=== PATIENT | male | born 1935 | race Caucasian/White ===

== ENCOUNTER 2017-09-11 11:17 | Inpatient (IN) | payer MEDICARE, OTHER ==
[~2017-09-11] VITALS: Ht 182.9 cm; Wt 88.5 kg
[~2017-09-11 11:17] MED LIST: ALBU90AE IH; ASPI-1169 PO; BENZ-38 PO; CLOP75TA15 PO; COLE625T9 PO; DILT240C88 PO; HYDR-3326 PO; MELO-105 PO; MEMA10TA PO; MIRT7.5T10 PO; PRED10TA PO; PROM6.25 PO
--- NOTE | 2017-09-11 11:17 | NUR ---
APPLIED PRESSURE ON WOUND
--- NOTE | 2017-09-11 11:17 | NUR ---
[id number] FROM [facility] FOR RT EYEBROW LACERATION S/P FALL FROM THE WHEELCHAIR, NO KO
[2017-09-11 11:32] LABS: BASOPHILS % (AUTO) 0.3 % (0.0-2.0); EOSINOPHILS # (AUTO) 0.2 /CMM (0.0-0.7); EOSINOPHILS % (AUTO) 1.5 % (0.0-6.0); HEMATOCRIT 47 % (39-51); HEMOGLOBIN 15.3 g/dL (13.5-17.5); LYMPHOCYTES # (AUTO) 0.7 /CMM (0.8-4.8); LYMPHOCYTES % (AUTO) 5.4 % (20.0-44.0); MEAN CORPUSCULAR HEMOGLOBIN 27 PG (26.0-33.0); MEAN CORPUSCULAR HGB CONC 33 g/dl (31.0-36.0); MEAN CORPUSCULAR VOLUME 81 fL (80-96); MONOCYTES # (AUTO) 0.4 /CMM (0.1-1.30); MONOCYTES % (AUTO) 2.8 % (2.0-12.0); NEUTROPHILS # (AUTO) 11.9 /CMM (1.8-8.9); PLATELET COUNT (AUTO) 270 /CMM (150-450); RDW COEFFICIENT OF VARIATION 13.7 (11.5-15.0); RED BLOOD CELL COUNT(AUTO) 5.72 MIL/uL (4.5-6.0); WHITE BLOOD COUNT (AUTO) 13.2 K/uL (4.3-11.0)
--- NOTE | 2017-09-11 11:36 | NUR ---
CAT SCAN TECHNOLOGIST AT BEDSIDE
[2017-09-11 11:43] LABS: CARBON DIOXIDE 29 mmol/L (21-32); CHLORIDE 110 mmol/L (98-107); CREATININE 1.2 mg/dL (0.6-1.3); GLUCOSE 174 mg/dL (74-106); POTASSIUM 4.3 mmol/L (3.5-5.1); SODIUM SERUM 144 mmol/L (136-145); UREA NITROGEN, BLOOD 32 mg/dL (7-18)
[2017-09-11 11:52] LABS: TROPONIN I < 0.017 ng/mL (0.00-0.056)
--- NOTE | 2017-09-11 11:52 | NUR ---
EKG IN PROGRESS
[2017-09-11 11:53] LABS: INR 1.1 (0.87-1.13); PROTHROMBIN TIME 11.4 SECS (9.5-12.7)
--- NOTE | 2017-09-11 12:23 | NUR ---
DR FISH PAGED [phone]. [facility] WILL COVER ALL CALLS/ADMISSIONS.
[2017-09-11] MEDS ORDERED: IV NS 0.9% 1,000 ML BAG IV ONE (12:30)
--- NOTE | 2017-09-11 12:31 | NUR ---
[facility] PAGED DR ORTEZ PATTERNMAKER GRADER [phone]
[2017-09-11] MEDS ORDERED: SACC250C PO (12:46)
[2017-09-11] MEDS ORDERED: DONE5TAB34 PO (12:46)
[2017-09-11] MEDS ORDERED: FURO20TA4 PO (12:46)
[2017-09-11] MEDS ORDERED: NA P133E RC (12:46)
[2017-09-11] MEDS ORDERED: IPRA3AMP IH (12:46)
[2017-09-11] MEDS ORDERED: MIRT15TA PO (12:46)
[2017-09-11] MEDS ORDERED: DILT180C66 PO (12:46)
[2017-09-11] MEDS ORDERED: GABA100C PO (12:46)
[2017-09-11] MEDS ORDERED: ACET-868 PO (12:46)
[2017-09-11] MEDS ORDERED: MAGN400O6 PO (12:46)
[2017-09-11] MEDS ORDERED: FAMO20TA8 PO (12:46)
[2017-09-11] MEDS ORDERED: DOCU-141 PO (12:46)
[2017-09-11 13:02] LABS: APPEARANCE,URINE Cloudy (CLEAR); BILIRUBIN,URINE Negative (NEGATIVE); BLOOD, URINE Moderate Ery/uL (NEGATIVE); COLOR,URINE Yellow (YELLOW); KETONES,URINE Negative (NEGATIVE); LEUKOCYTE ESTERASE ,URINE Moderate (NEGATIVE); NITRITE, URINE Positive (NEGATIVE); PROTEIN,URINE Trace mg/dl (NEGATIVE); UGLUCOSE Negative (NEGATIVE); UROBILINOGEN,URINE 0.2 EU/dL (0.2)
[2017-09-11] MEDS ORDERED: CEFTRIAXONE 1GM BAG (ER ONLY) 50 ML IV ONE (13:06)
[2017-09-11 13:10] LABS: BACTERIA,URINE Many /HPF (None Seen); SQUAMOUS EPITHELIAL CELL,UR Few /HPF (None Seen); WBC,URINE TOO NUMEROUS TO COUN /HPF (0-3)
--- NOTE | 2017-09-11 13:26 | NUR ---
BED FOR ADMISSION, 328-2, DAIANA TREVINO
[2017-09-11] MEDS ORDERED: MAGNESIUM HYDROXIDE 30 ML UDC PO PRN (13:30)
[2017-09-11] MEDS ORDERED: ONDANSETRON HCL/PF 4 MG/2 ML VIAL IVP PRN (13:30)
[2017-09-11] MEDS ORDERED: HYDROCODONE/APAP 5/325MG 1 EACH TABLET PO PRN (13:30)
[2017-09-11] MEDS ORDERED: ACETAMINOPHEN 325 MG TABLET PO PRN (13:30)
[2017-09-11] MEDS ORDERED: MAG HYDROX/AL HYDROX/SIMETH 30 ML UDC PO PRN (13:30)
[2017-09-11] MEDS ORDERED: Z GUARD REMEDY 2 OZ OINT TP PRN ×2 (13:30→19:30)
[2017-09-11] MEDS ORDERED: CEFTRIAXONE 1GM BAG (ER ONLY) 1 GM/50 ML PIGGYBACK IV ONE (13:30)
[2017-09-11] MEDS ORDERED: ZOLPIDEM TARTRATE 5 MG TABLET PO PRN (13:30)
--- NOTE | 2017-09-11 14:20 | NUR ---
SUPERVISOR SELF SERVICE STOREGOLD LEAF LABORER NOTE PATIENT IS ALERT AND ORIENTED x1-2. NO PAIN AT THIS TIME. NO SOB OR DISTRESS NOTED. CALL LIGHT WITHIN REACH. SAFETY MEASURES IMPLEMENTED. ABLE TO COMMUNICATE NEEDS. IV ON RIGHT AC 18G AND LEFT FOREARM 20 G. HAS MULTIPLE SKIN ISSUES NOTED, RIGHT EYEBROW LACERATION. PATIENT IS FROM [facility], PATIENT WAS SITTING ON WHEELCHAIR WHEN HE FELL FORWARD. NO NEUROLOGICAL DEFICITS NOTED. DAUGHTER AT BEDSIDE. DNR/DNI. POLST IN CHART. AWAITING FOR MD ORDERS. WILL CONTINUE TO MONITOR THROUGHOUT SHIFT
[2017-09-11] MEDS ORDERED: CEFTRIAXONE 1 G in IV D5W 50 ML IV SCH (15:00)
--- NOTE | 2017-09-11 15:22 | NUR ---
ASSISTANT PROFESSOR OF RELIGION NOTE [facility] AND SPOKE WITH DAIANA HURST TO RECEIVE COPY OF POLST FORM. POLST FORM RECEIVED AND PLACED IN CHART
[2017-09-11] MEDS: DILTIAZEM HCL CD 180 MG PO SCH (15:30)
[2017-09-11] MEDS: IV NS 0.9% 1,000 ML IV PRN (15:31)
[2017-09-11] MEDS ORDERED: DILTIAZEM HCL CD 180 MG PO SCH (16:00)
[2017-09-11] MEDS: ASPIRIN 81 MG TAB.CHEW PO SCH (16:46)
[2017-09-11] MEDS: GABAPENTIN 100 MG CAPSULE PO SCH (16:46)
[2017-09-11] MEDS: DONEPEZIL 5 MG TABLET PO SCH (16:46)
[2017-09-11] MEDS: DOCUSATE SODIUM 100 MG CAPSULE PO SCH (16:46)
--- NOTE | 2017-09-11 18:40 | NUR ---
CHIEF CHEMIST CLOSING NOTE PATIENT IS ALERT AND ORIENTED x1-2. NO PAIN AT THIS TIME. NO SOB OR DISTRESS NOTED. CALL LIGHT WITHIN REACH AT ALL TIMES. SAFETY MEASURES IMPLEMENTED. ALL DUE MEDICATIONS GIVEN ORDERED. ALL NURSING CARE NEEDS ATTENDED TO NEEDED. S/P FALL FROM LONG TERM. IV INTACT AND PATENT NO REDNESS OR SWELLING NOTED, IV FLUIDS RUNNING AT THIS TIME AT 75 ML/HR. LABS IN THE MORNING. WILL ENDORSE TO ACCOUNT SERVICES COORDINATOR NURSE FOR CORNELIA Addendum: 09/11/17 at 1847 by URIEL BARBER RN HAS TELE MONITOR ON. A-FIB AT 133.
--- NOTE | 2017-09-11 19:15 | NUR ---
TELE/RN OPENING NOTES PT ASLEEP, OPENS EYES A/OX1-2. ON 3L O2 VIA NC, BREATHING EVEN AND UNLABORED. NON PRODUCTIVE COUGH NOTED. ON TELE MONITOR SHOWING A. FIB WITH HR 134. IV TO LFA AND RAC PATENT AND INTACT RUNNING IVF ORDERED. BED IN LOW/LOCKED POSITION WITH CALL LIGHT IN REACH. SIDE RAILS UPX3. WILL CONTINUE TO MONITOR
[2017-09-11 20:00] VITALS: BP 132/79
[2017-09-11] MEDS: MIRTAZAPINE 15 MG TABLET PO SCH (21:15)
[2017-09-11 23:33] VITALS: BP 139/68
[2017-09-12] VITALS: BP 139/68
[2017-09-12 04:00] VITALS: BP 132/56
[2017-09-12] MEDS: IV NS 0.9% 1,000 ML IV PRN (06:49)
--- NOTE | 2017-09-12 07:15 | NUR ---
TELE/RN CLOSING NOTES PT ASLEEP, A/OX1. REMAINS ON 3L O2 VIA NC, BREATHING EVEN AND UNLABORED. NON PRODUCTIVE COUGH NOTED. TELE MONITOR SHOWS A. FIB WITH HR AT 111. IV TO LFA PATENT AND INTACT RUNNING IVF ORDERED. ASPIRATION PRECAUTIONS IMPLEMENTED. MADE PT COMFORTABLE DURING SHIFT. SIDE RAILS UPX3, BED IN LOW/LOCKED POSITION WITH CALL LIGHT IN REACH. ENDORSED TO AM SHIFT CORNELIA.
[2017-09-12 08:00] VITALS: BP 107/59
--- NOTE | 2017-09-12 08:15 | NUR ---
GAMING CAGE CASHIER NOTES. RECEIVED PT A&0X1, DROWSY. PT WITH O2 2LPM VIA NC WITH SO SIGNS OF RESP DISTRESS. LUNGS AUSCULTATED WET. PT UNABLE TO REPORT PAIN WITHOUT S/S OF DISTRESS OR DISCOMFORT. PT WITH IVC AT L FA G#20 INTACT AND OPERATIONAL. BED IN LOWEST LOCKED POSITON WITH HANDRAILX3 AND CALL GOEL WITHIN REACH.
[2017-09-12 08:16] LABS: EOSINOPHILS # (AUTO) 0.1 /CMM (0.0-0.7); EOSINOPHILS % (AUTO) 0.3 % (0.0-6.0); HEMATOCRIT 44 % (39-51); HEMOGLOBIN 14.2 g/dL (13.5-17.5); LYMPHOCYTES # (AUTO) 0.8 /CMM (0.8-4.8); LYMPHOCYTES % (AUTO) 3.7 % (20.0-44.0); MEAN CORPUSCULAR HEMOGLOBIN 26 PG (26.0-33.0); MEAN CORPUSCULAR HGB CONC 32 g/dl (31.0-36.0); MEAN CORPUSCULAR VOLUME 82 fL (80-96); MONOCYTES # (AUTO) 0.4 /CMM (0.1-1.30); MONOCYTES % (AUTO) 2.1 % (2.0-12.0); NEUTROPHILS # (AUTO) 19.3 /CMM (1.8-8.9); NEUTROPHILS % (AUTO) 93.9 % (43.0-81.0); PLATELET COUNT (AUTO) 240 /CMM (150-450); RDW COEFFICIENT OF VARIATION 14.5 (11.5-15.0); RED BLOOD CELL COUNT(AUTO) 5.39 MIL/uL (4.5-6.0); WHITE BLOOD COUNT (AUTO) 20.5 K/uL (4.3-11.0)
[2017-09-12 08:18] LABS: ALANINE AMINOTRANSFERASE 15 U/L (12-78); ALBUMIN 2.7 g/dL (3.4-5.0); ALKALINE PHOSPHATASE 50 U/L (46-116); ASPARTATE AMINOTRANSFERASE 13 U/L (15-37); BILIRUBIN,TOTAL 0.4 mg/dL (0.2-1.0); CALCIUM, SERUM 8.5 mg/dL (8.5-10.1); CARBON DIOXIDE 26 mmol/L (21-32); CHLORIDE 113 mmol/L (98-107); CREATININE 1.3 mg/dL (0.6-1.3); GLUCOSE 157 mg/dL (74-106); MAGNESIUM 1.8 mg/dL (1.8-2.4); PHOSPHORUS 2.9 mg/dL (2.5-4.9); POTASSIUM 4.1 mmol/L (3.5-5.1); SODIUM SERUM 146 mmol/L (136-145); UREA NITROGEN, BLOOD 30 mg/dL (7-18)
[2017-09-12 08:46] LABS: CHOLESTEROL 90 mg/dL (<200); HDL CHOLESTEROL 36 mg/dL (40-60); TRIGLYCERIDES 59 mg/dL (30-150)
[2017-09-12] MEDS: GABAPENTIN 100 MG CAPSULE PO SCH ×2 (08:49→16:22)
[2017-09-12] MEDS: ASPIRIN 81 MG TAB.CHEW PO SCH (08:49)
[2017-09-12] MEDS: DONEPEZIL 5 MG TABLET PO SCH (08:49)
[2017-09-12] MEDS: DOCUSATE SODIUM 100 MG CAPSULE PO SCH ×2 (08:49→16:22)
[2017-09-12 09:00] LABS: LDL 47 mg/dL (0-99)
[2017-09-12] MEDS: DILTIAZEM HCL CD 180 MG PO SCH (09:00)
[2017-09-12] MEDS: CEFTRIAXONE 1 G in IV D5W 50 ML IV SCH (13:30)
--- NOTE | 2017-09-12 15:00 | NUR ---
RN NOTES. PT WITH NC O2 2L/PM, PT WITH MINOR SOB, INCREASED RESP RATE. LUNGS AUSCULTATED WET, WHEEZY WITH RHONCHI. PT COUGHING BUT MOSTLY NON PRODUCTIVE. MD NOTIFIED. MD REQUESTING RESP THERAPY ALBUTEROL AND ATROVENT 1 NEB Q4 WITH RT. WILL ORDER.
[2017-09-12 16:00] VITALS: BP 129/70
[2017-09-12] MEDS: ALBUTEROL FS 2.5 MG/0.5 ML VIAL.NEB NEB SCH ×4 (17:00→23:30)
[2017-09-12] MEDS: IPRATROPIUM NEB FS 0.5 MG/2.5 ML AMPUL.NEB NEB SCH ×3 (17:00→23:30)
--- NOTE | 2017-09-12 18:57 | NUR ---
RAIL WALKER CLOSING NOTES. PT A&0X1, CONFUSED BUT CONVERSATIONAL. PT TELE: A FIB WITH PVC 131. PT WITH O2 VIA NC 2LPM, SOME SOB, IMPROVED POST RESP THERAPY. PT REPORTING NO PAIN. PT WITH IVC AT L FA G#20 INTACT AND OPERATIONAL. PT BED IN LOWEST LOCKED POSITION WITH HANDRAILSX3 AND CALL GOEL WITHIN REACH. ALL DAY SHIFT DUTIES ATTENDED TO AND PT IS WITHOUT CONCERN OR COMPLAINT AT THIS TIME, WILL ENDORSE TO NIGHT NURSE.
[2017-09-12 20:00] VITALS: BP 137/88
--- NOTE | 2017-09-12 20:00 | NUR ---
TELE/RN OPENING NOTES PT AWAKE, ALERT AND ORIENTED X2. ON 3L O2 VIA NC, BREATHING EVEN AND UNLABORED. NON PRODUCTIVE COUGH NOTED. ON TELE MONITOR SHOWING A. FIB WITH HR 138. IV TO LFA AND RAC PATENT AND INTACT RUNNING IVF ORDERED. BED IN LOW/LOCKED POSITION WITH CALL LIGHT IN REACH. SIDE RAILS UPX3. WILL CONTINUE TO MONITOR
[2017-09-12 21:30] LABS: ABG BASE EXCESS -0.3 mmol/L; ABG OXYGEN SATURATION 96.1 % (92.0-98.5); ABG PCO2 43.7 mmHg (35.0-45.0); ABG PH 7.376 (7.350-7.450); ABG PO2 86.3 mmHg (75.0-100.0); AaDO2 90.7 mmHg; COHb 0.7 % (0.5-1.5); MetHb 0.4 % (0.0-1.5); SITE, ABG Right Radial; VENT MODE, BG Nasal Cannula
[2017-09-12] MEDS: MIRTAZAPINE 15 MG TABLET PO SCH (21:37)
[2017-09-12 22:00] VITALS: BP 137/88
[2017-09-13] VITALS: BP 144/89
--- NOTE | 2017-09-13 00:30 | NUR ---
RURAL MAIL CONTRACTOR NOTE HR CONTINUES TO BE ELEVATED TO 140. DR. HANDY NOTIFIED. NEW ORDER FOR DIGOXIN 0.25MG PO RECEIVED AND CARRIED OUT. WILL CONTINUE TO MONITOR.
[2017-09-13] MEDS ORDERED: DIGOXIN 0.25 MG TABLET ONE (00:40)
[2017-09-13] MEDS ORDERED: DIGOXIN 0.25 MG TABLET PO SCH (01:00)
--- NOTE | 2017-09-13 01:30 | NUR ---
WEB INTERFACE DEVELOPER NOTE HR CONTINUES TO BE ELEVATED TO 138. MD AWARE. NO NEW ORDERS AT THIS TIME. PATIENT COMFORTABLE. WILL CONTINUE TO MONITOR.
[2017-09-13] MEDS: IPRATROPIUM NEB FS 0.5 MG/2.5 ML AMPUL.NEB NEB SCH ×6 (03:18→23:11)
[2017-09-13] MEDS: ALBUTEROL FS 2.5 MG/0.5 ML VIAL.NEB NEB SCH ×4 (03:18→14:54)
[2017-09-13 04:00] VITALS: BP 130/77
[2017-09-13] MEDS: IV 1/2NS 1000 ML 1,000 ML IV PRN (05:37)
--- NOTE | 2017-09-13 06:19 | NUR ---
telecom manager note Patient resting comfortably. HR 138. uncontrolled A.Fib with PVC's. MD aware. All needs met and attended to. iv site intact, with fluids running as ordered. Will endorse to day shift for flakita.
[2017-09-13 08:00] VITALS: BP 133/90
--- NOTE | 2017-09-13 08:03 | NUR ---
EDITOR TRADE JOURNAL NOTES. RECEIVED PT A&0X1, PT RESTING BUT EASILY WOKEN BY NAME, PT CONFUSED. TELE: A FIB 120-140, ENDORSED MD AWARE OVERNIGHT. PT WITH NC AT 2L/PM AND NO OBVIOUS SIGNS OF SOB AT THIS TIME. LUNGS AUSCULTATED CLEAR BUT DIMINISHED IN LOWER [place]. PT REPORTING NO PAIN. PT WITH IVC AT L AC G#2O, INTACT AND OPERATIONAL. PT BED IN LOWEST LOCKED POSITION WITH HANDRAILSX2 AND CALL GOEL WITHIN REACH. PT WITHOUT CONCERN OR COMPLAINT AT THIS TIME.
--- NOTE | 2017-09-13 08:08 | NUR ---
CONTACT DAUGHTER ANN WITH CHANGES [phone]
[2017-09-13] MEDS: DILTIAZEM HCL CD 180 MG PO SCH (09:26)
[2017-09-13] MEDS: GABAPENTIN 100 MG CAPSULE PO SCH ×2 (09:26→19:00)
[2017-09-13] MEDS: ASPIRIN 81 MG TAB.CHEW PO SCH (09:26)
[2017-09-13] MEDS: DOCUSATE SODIUM 100 MG CAPSULE PO SCH ×2 (09:26→19:00)
[2017-09-13] MEDS: DONEPEZIL 5 MG TABLET PO SCH (09:26)
--- NOTE | 2017-09-13 13:00 | NUR ---
MS RN NOTES TELE D/C PER
[2017-09-13] MEDS: CEFTRIAXONE 1 G in IV D5W 50 ML IV SCH (13:17)
[2017-09-13 16:00] VITALS: BP 120/69
--- NOTE | 2017-09-13 18:13 | NUR ---
MS RN CLOSING NOTES PT REMAINS A&0X1. PT WITH NC AT 2L/PM WITH HEAVY CHEST CONGESTION AND NON PRODUCTIVE COUGH, PT IS WITH SOME SOB AND INCREASED WORK BREATHING, MD VÁSQUEZ INFORMED AND HAS REVIEWED PT. PT DENIES PAIN AND IS WITHOUT S/S OF DISTRESS OR DISCOMFORT. PT WITH IVC AT L AC INTACT AND OPERATIONAL. BED IN LOWEST LOCKED POSITION WITH HNADRAILSX2 AND CALL GOEL WITHIN REACH. PT IS WITHOUT CONCERN OR COMPLAINT AT THIS TIME. WILL ENDORSE TO NIGHT NURSE. Addendum: 09/13/17 at 1924 by LUIZ GUDINO RN PT NOW WITH CONTACT PRECAUTIONS, ENDORSED TO NIGHT NURSE
[2017-09-13] MEDS: MEROPENEM 500 MG in IV NS 0.9% 50 ML IV SCH (19:00)
--- NOTE | 2017-09-13 19:30 | NUR ---
MS RN OPENING NOTES PT AWAKE, ALERT AND ORIENTED X2. ON 3L O2 VIA NC, BREATHING EVEN AND UNLABORED. IV TO LFA AND RAC PATENT AND INTACT RUNNING IVF ORDERED. BED IN LOW/LOCKED POSITION WITH CALL LIGHT IN REACH. SIDE RAILS UPX3. WILL CONTINUE TO MONITOR
[2017-09-13 20:00] VITALS: BP 120/80
[2017-09-13 20:22] LABS: BASOPHILS % (AUTO) 0.2 % (0.0-2.0); EOSINOPHILS # (AUTO) 0.1 /CMM (0.0-0.7); EOSINOPHILS % (AUTO) 0.6 % (0.0-6.0); HEMATOCRIT 38 % (39-51); HEMOGLOBIN 12.7 g/dL (13.5-17.5); LYMPHOCYTES % (AUTO) 9.6 % (20.0-44.0); MEAN CORPUSCULAR HEMOGLOBIN 27 PG (26.0-33.0); MEAN CORPUSCULAR HGB CONC 34 g/dl (31.0-36.0); MEAN CORPUSCULAR VOLUME 81 fL (80-96); MONOCYTES # (AUTO) 0.6 /CMM (0.1-1.30); MONOCYTES % (AUTO) 5.1 % (2.0-12.0); NEUTROPHILS # (AUTO) 9.2 /CMM (1.8-8.9); NEUTROPHILS % (AUTO) 84.5 % (43.0-81.0); PLATELET COUNT (AUTO) 200 /CMM (150-450); RDW COEFFICIENT OF VARIATION 13.5 (11.5-15.0); RED BLOOD CELL COUNT(AUTO) 4.67 MIL/uL (4.5-6.0); WHITE BLOOD COUNT (AUTO) 10.9 K/uL (4.3-11.0)
[2017-09-13 20:23] LABS: CALCIUM, SERUM 8.6 mg/dL (8.5-10.1); CARBON DIOXIDE 25 mmol/L (21-32); CHLORIDE 108 mmol/L (98-107); GLUCOSE 157 mg/dL (74-106); SODIUM SERUM 142 mmol/L (136-145); UREA NITROGEN, BLOOD 28 mg/dL (7-18)
[2017-09-13 20:40] LABS: ABG BASE EXCESS -2.6 mmol/L; ABG OXYGEN SATURATION 94.3 % (92.0-98.5); ABG PCO2 34.2 mmHg (35.0-45.0); ABG PH 7.412 (7.350-7.450); ABG PO2 68.3 mmHg (75.0-100.0); AaDO2 177.6 mmHg; COHb 0.7 % (0.5-1.5); MetHb 0.3 % (0.0-1.5); O2Hb 93.4 % (94.0-97.0); SITE, ABG Right Radial; VENT MODE, BG N/C
[2017-09-13] MEDS: MIRTAZAPINE 15 MG TABLET PO SCH (21:09)
[2017-09-13 22:00] VITALS: BP 120/80
[2017-09-13] MEDS: LEVALBUTEROL HCL NEB 1.25 MG/0.5 ML VIAL.NEB NEB SCH (23:11)
[2017-09-14] MEDS: IPRATROPIUM NEB FS 0.5 MG/2.5 ML AMPUL.NEB NEB SCH ×6 (03:45→23:25)
[2017-09-14] MEDS: IV 1/2NS 1000 ML 1,000 ML IV PRN (06:40)
--- NOTE | 2017-09-14 07:45 | NUR ---
MS/RN OPENING NOTE PATIENT IN BED IN STABLE CONDITION. A/O X 1. NO SIGNS OF ACUTE DISTRESS. NO COMPLAIN OF PAIN OR DISCOMFORT. ON CONTACT ISOLATION FOR ESBL URINE. IDRIS. WELL. ALL NEEDS ATTENDED TO. CALL LIGHT WITHIN REACH. WILL CONTINUE TO MONITOR TO ENSURE SAFETY.
[2017-09-14 08:00] VITALS: BP 122/76
[2017-09-14] MEDS: LEVALBUTEROL HCL NEB 1.25 MG/0.5 ML VIAL.NEB NEB SCH ×3 (08:43→23:25)
[2017-09-14] MEDS: ASPIRIN 81 MG TAB.CHEW PO SCH (09:13)
[2017-09-14] MEDS: GABAPENTIN 100 MG CAPSULE PO SCH ×2 (09:13→16:51)
[2017-09-14] MEDS: DILTIAZEM HCL CD 180 MG PO SCH (09:13)
[2017-09-14] MEDS: DOCUSATE SODIUM 100 MG CAPSULE PO SCH ×2 (09:13→16:51)
[2017-09-14] MEDS: MEROPENEM 500 MG in IV NS 0.9% 50 ML IV SCH ×3 (09:13→21:24)
[2017-09-14] MEDS: DONEPEZIL 5 MG TABLET PO SCH (09:13)
[2017-09-14 11:22] LABS: EOSINOPHILS % (AUTO) 0.4 % (0.0-6.0); HEMATOCRIT 37 % (39-51); HEMOGLOBIN 11.9 g/dL (13.5-17.5); LYMPHOCYTES # (AUTO) 0.8 /CMM (0.8-4.8); LYMPHOCYTES % (AUTO) 7.7 % (20.0-44.0); MEAN CORPUSCULAR HEMOGLOBIN 26 PG (26.0-33.0); MEAN CORPUSCULAR HGB CONC 32 g/dl (31.0-36.0); MEAN CORPUSCULAR VOLUME 81 fL (80-96); MONOCYTES # (AUTO) 0.4 /CMM (0.1-1.30); MONOCYTES % (AUTO) 4.5 % (2.0-12.0); NEUTROPHILS # (AUTO) 8.5 /CMM (1.8-8.9); NEUTROPHILS % (AUTO) 87.4 % (43.0-81.0); PLATELET COUNT (AUTO) 168 /CMM (150-450); RDW COEFFICIENT OF VARIATION 14.1 (11.5-15.0); RED BLOOD CELL COUNT(AUTO) 4.51 MIL/uL (4.5-6.0); WHITE BLOOD COUNT (AUTO) 9.7 K/uL (4.3-11.0)
[2017-09-14 11:35] LABS: CALCIUM, SERUM 6.9 mg/dL (8.5-10.1); CARBON DIOXIDE 22 mmol/L (21-32); CHLORIDE 114 mmol/L (98-107); CREATININE 0.8 mg/dL (0.6-1.3); GLUCOSE 104 mg/dL (74-106); SODIUM SERUM 146 mmol/L (136-145); UREA NITROGEN, BLOOD 21 mg/dL (7-18)
[2017-09-14 11:45] LABS: POTASSIUM 4.6 mmol/L (3.5-5.1)
--- NOTE | 2017-09-14 13:11 | NUR ---
MS/RN SPOKE WITH IGNACIO BALANCE WHEEL SCREW HOLE TAPPER SPOKE WITH IGNACIO GARVIN BALANCE WHEEL SCREW HOLE TAPPER AND RELAYED PATIENTS ELECTROLYTES WITH ORDERS TO DC IV FLUIDS
[2017-09-14] MEDS: methylPREDNISolone SOD SUCC 40 MG/ML VIAL IV SCH ×2 (14:18→16:51)
[2017-09-14 16:00] VITALS: BP 126/78
--- NOTE | 2017-09-14 18:23 | NUR ---
MS/RN CLOSING NOTE PATIENT IN BED IN STABLE CONDITION. A/O X 2. NO SIGNS OF ACUTE DISTRESS. NO COMPLAIN OF PAIN OR DISCOMFORT. ALL NEEDS ATTENDED TO. CALL LIGHT WITHIN REACH. WILL ENDORSE TO NEXT SHIFT FOR CONTINUITY OF CARE.
--- NOTE | 2017-09-14 19:30 | NUR ---
MS RN OPENING NOTES: PATIENT IN BED, AOX2, ON O2 AT 3 LPM VIA NC, BREATHING EVEN AND UNLABORED, BUT WITH SLIGHT WHEEZING HEARD. APPEARS CALM AND IN NO DISTRESS, DENIES PAIN. PIV OVER R HAND G 22 INTACT AND PATENT TO FLUSH. PROVIDED FOR COMFORT AND SAFETY. BED IN LOWEST AND LOCKED POSITION, SIDERAILS UP X 3, BED ALARMS SEWING ROOM SUPERVISOR LIGHT WITHIN REACH. WILL CONT TO MONITOR.
[2017-09-14 20:00] VITALS: BP 137/88
[2017-09-14] MEDS: MIRTAZAPINE 15 MG TABLET PO SCH (21:24)
--- NOTE | 2017-09-14 23:51 | NUR ---
RN NOTES: SPOKE TO ANNA MITER OPERATOR RE PATIENT'S HR, WHICH RT JUST CHECKED TO BE IN 50S, BUT FULL APICAL HR CHECKED AT 87. ALSO INFORMED HER THAT EARLIER IT WAS 137. HOWEVER, BP IS STABLE, PATIENT APPEARS ASYMPTOMATIC, SLEEPING COMFORTABLY. NNO PER ANNA, CONT TO MONITOR VS.
[2017-09-15] MEDS: IPRATROPIUM NEB FS 0.5 MG/2.5 ML AMPUL.NEB NEB SCH ×6 (03:18→23:37)
[2017-09-15] MEDS: MEROPENEM 500 MG in IV NS 0.9% 50 ML IV SCH ×3 (04:37→21:18)
--- NOTE | 2017-09-15 06:37 | NUR ---
MS RN CLOSING NOTES: PATIENT IN BED, AOX1, ON O2 AT 3 LPM VIA NC, BREATHING EVEN AND UNLABORED, APPEARS CALM AND IN NO DISTRESS, WAS ABLE TO SLEEP WELL THROUGH NIGHT. PIV OVER R HAND G 22 INTACT AND PATENT TO FLUSH. DUE MEDS GIVEN. PROVIDED FOR COMFORT AND SAFETY. BED IN LOWEST AND LOCKED POSITION, SIDERAILS UP X 3, MAINTAINED HOB ELEVATED. ON ASPIRATION PRECAUTIONS. WILL ENDORSE TO AM RN FOR CORNELIA.
[2017-09-15 08:00] VITALS: BP 152/78
--- NOTE | 2017-09-15 08:12 | NUR ---
MS/RN OPENING NOTE PATIENT IN BED IN STABLE CONDITION. A/O X 2. NO SIGNS OF ACUTE DISTRESS. NO COMPLAIN OF PAIN OR DISCOMFORT. ON CONTACT ISOLATION FOR ESBL URINE. TOLERATING WELL. ALL NEEDS ATTENDED TO. CALL LIGHT WITHIN REACH. WILL CONTINUE TO MONITOR TO ENSURE SAFETY.
[2017-09-15] MEDS: ALBUTEROL HALF STRENGTH 1.25 MG/3 ML VIAL.NEB NEB SCH ×3 (08:25→20:24)
[2017-09-15 08:39] LABS: BASOPHILS % (AUTO) 0.2 % (0.0-2.0); EOSINOPHILS % (AUTO) 0.1 % (0.0-6.0); HEMATOCRIT 43 % (39-51); HEMOGLOBIN 14.2 g/dL (13.5-17.5); LYMPHOCYTES # (AUTO) 0.8 /CMM (0.8-4.8); LYMPHOCYTES % (AUTO) 14.3 % (20.0-44.0); MEAN CORPUSCULAR HEMOGLOBIN 27 PG (26.0-33.0); MEAN CORPUSCULAR HGB CONC 33 g/dl (31.0-36.0); MEAN CORPUSCULAR VOLUME 81 fL (80-96); MONOCYTES # (AUTO) 0.3 /CMM (0.1-1.30); MONOCYTES % (AUTO) 5.1 % (2.0-12.0); NEUTROPHILS # (AUTO) 4.6 /CMM (1.8-8.9); NEUTROPHILS % (AUTO) 80.3 % (43.0-81.0); PLATELET COUNT (AUTO) 194 /CMM (150-450); RDW COEFFICIENT OF VARIATION 14.4 (11.5-15.0); RED BLOOD CELL COUNT(AUTO) 5.32 MIL/uL (4.5-6.0); WHITE BLOOD COUNT (AUTO) 5.8 K/uL (4.3-11.0)
[2017-09-15 08:51] LABS: CALCIUM, SERUM 9.1 mg/dL (8.5-10.1); CARBON DIOXIDE 27 mmol/L (21-32); CHLORIDE 108 mmol/L (98-107); CREATININE 0.9 mg/dL (0.6-1.3); GLUCOSE 137 mg/dL (74-106); POTASSIUM 4.3 mmol/L (3.5-5.1); SODIUM SERUM 143 mmol/L (136-145); UREA NITROGEN, BLOOD 24 mg/dL (7-18)
[2017-09-15] MEDS: methylPREDNISolone SOD SUCC 40 MG/ML VIAL IV SCH ×3 (09:02→16:57)
[2017-09-15] MEDS: DILTIAZEM HCL CD 180 MG PO SCH (09:03)
[2017-09-15] MEDS: GABAPENTIN 100 MG CAPSULE PO SCH ×2 (09:03→16:57)
[2017-09-15] MEDS: DOCUSATE SODIUM 100 MG CAPSULE PO SCH ×2 (09:03→16:57)
[2017-09-15] MEDS: ASPIRIN 81 MG TAB.CHEW PO SCH (09:03)
[2017-09-15] MEDS: DONEPEZIL 5 MG TABLET PO SCH (09:03)
--- NOTE | 2017-09-15 09:17 | NUR ---
RT PHARMACIST CHANGED MEDICATION FROM XOPENEX TO ALBUTEROL. 0735 TX ALREADY GIVEN. NO SIGNS OF SOB NOTED AT THIS TIME. WILL CONTINUE SCHEDULED DOSE.
[2017-09-15] MEDS ORDERED: PRED20TA PO (14:42)
[2017-09-15] MEDS ORDERED: MERO500V3 IV (14:44)
--- NOTE | 2017-09-15 18:37 | NUR ---
MS/RN CLOSING NOTE PATIENT IN BED IN STABLE CONDITION. A/O X 1-2 WITH EPISODES OF FORGETFULNESS. NO SIGNS OF ACUTE DISTRESS. NO COMPLAIN OF PAIN OR DISCOMFORT. ALL NEEDS ATTENDED TO. CALL LIGHT WITHIN REACH. WILL ENDORSE TO NEXT SHIFT FOR CONTINUITY OF CARE.
--- NOTE | 2017-09-15 19:15 | NUR ---
MS/MORNING NEWS ANCHOR; RECEIVED PT'S REPORTS FROM THE DAY SHIFT RN FOR CONTINUITY OF CARE. AT THIS TIME PT IN BED AWAKE, ALERT AND VERBALLY RESPONSIVE. BREATHING NON LABORED. NOT IN DISTRESS.HL ON RT HAND INTACT AND PATENT. ON CONTACT ISOLATION. OBSERVED. BED ON LOWER POSITION AND LOCKED FOR SAFETY. SIDE RAILS ARE UP FOR SAFETY. CONTINUE TO MONITOR. CALL LIGHT WITHIN REACH.
[2017-09-15 20:00] VITALS: BP 110/73
[2017-09-15] MEDS: MIRTAZAPINE 15 MG TABLET PO SCH (22:21)
--- NOTE | 2017-09-15 23:30 | NUR ---
MS/MAGNETO ELECTRICIAN; RT CHRISTIANO CAME TO GIVE BREATHING TREATMENT. SHE SAID PT'S O2 SAT 92 %.
[2017-09-16] MEDS: IPRATROPIUM NEB FS 0.5 MG/2.5 ML AMPUL.NEB NEB SCH ×3 (03:42→11:17)
[2017-09-16] MEDS: ALBUTEROL HALF STRENGTH 1.25 MG/3 ML VIAL.NEB NEB SCH ×3 (03:42→13:30)
[2017-09-16] MEDS: MEROPENEM 500 MG in IV NS 0.9% 50 ML IV SCH ×2 (04:53→13:00)
--- NOTE | 2017-09-16 06:20 | NUR ---
MS/GEOSPATIAL ANALYST; PT SLEPT FINE. BREATHING NON LABORED. DENIES PAIN. WILL CONTINUE TO MONITOR. CALL LIGHT WITHIN REACH. WILL ENDORSE TO THE DAY SHIFT NURSE.
[2017-09-16 08:00] VITALS: BP 144/88
--- NOTE | 2017-09-16 08:00 | NUR ---
m/s drip pumper: initial assessment received pt in bed awake, a/ox2 with forgetfulness and disorientation to place and situation. reality orientation provided prn. no c/o pain or any discomfort. bed alarm on. side rails x2 up. instructed to call for assistance. will continue to monitor.
[2017-09-16 08:54] VITALS: BP 144/88
[2017-09-16] MEDS: DONEPEZIL 5 MG TABLET PO SCH (08:54)
[2017-09-16] MEDS: GABAPENTIN 100 MG CAPSULE PO SCH (08:54)
[2017-09-16] MEDS: ASPIRIN 81 MG TAB.CHEW PO SCH (08:54)
[2017-09-16] MEDS: DILTIAZEM HCL CD 180 MG PO SCH (08:54)
[2017-09-16] MEDS: DOCUSATE SODIUM 100 MG CAPSULE PO SCH (08:54)
[2017-09-16] MEDS: methylPREDNISolone SOD SUCC 40 MG/ML VIAL IV SCH ×2 (09:18→13:01)
--- NOTE | 2017-09-16 10:00 | NUR ---
m/s wood club neck whipper: notes resting comfortable in bed. am care rendered by staff. instructed to call for assistance. will continue to monitor.
--- NOTE | 2017-09-16 13:14 | NUR ---
m/s laboratory analyst: [facility] pt aware. gabe (daughter) notified and made aware re: d'c back to [facility], spoke to her over the phone.
--- NOTE | 2017-09-16 13:30 | NUR ---
m/s drug enforcement administration agent: notes pt unable to sign all d'c papers due to cognitive impairment. 2 licensed staff signed all d'c papers. all belongings returned and bag provided. awaiting for ambulance to belt picker pt. iv merrem completed and flushed with 10ml of normal and then h/l. awaiting for ambulance to belt picker the pt.
--- NOTE | 2017-09-16 14:15 | NUR ---
m/s painting manager: notes ambulance here and report given to one of the crew. h/l removed with tip intact with no bleeding, no redness, and no swelling noted.
--- NOTE | 2017-09-16 14:35 | NUR ---
m/s starch dumper: discharged discharged back to [facility] in stable condition with all d'c papers and belongings accompanied by 2 crew.
== END 2017-09-16 14:36 | DRG 871 ==
LOC: ER 11:20 → TELE 13:52 → MED 09-13 13:28
PROVIDERS: ADMIT Internal Medicine; ATTEND Internal Medicine
DX: A41.9 Sepsis, unspecified organism (principal); J96.21 Acute and chronic respiratory failure with hypoxia; G93.41 Metabolic encephalopathy; N39.0 Urinary tract infection, site not specified; D68.59 Other primary thrombophilia; E11.9 Type 2 diabetes mellitus without complications; B96.20 Unspecified Escherichia coli [E. coli] as the cause of diseases classified elsewhere; J44.1 Chronic obstructive pulmonary disease with (acute) exacerbation; I48.91 Unspecified atrial fibrillation; W18.30XA Fall on same level, unspecified, initial encounter; E78.5 Hyperlipidemia, unspecified; G30.9 Alzheimer's disease, unspecified; F02.80 Dementia in other diseases classified elsewhere, unspecified severity, without behavioral disturbance, psychotic disturbance, mood disturbance, and anxiety; I10 Essential (primary) hypertension; I25.10 Atherosclerotic heart disease of native coronary artery without angina pectoris; K21.9 Gastro-esophageal reflux disease without esophagitis; Z86.73 Personal history of transient ischemic attack (TIA), and cerebral infarction without residual deficits; Z99.81 Dependence on supplemental oxygen; J44.9 Chronic obstructive pulmonary disease, unspecified; R53.81 Other malaise; L98.8 Other specified disorders of the skin and subcutaneous tissue; S80.211A Abrasion, right knee, initial encounter; S00.81XA Abrasion of other part of head, initial encounter; S00.31XA Abrasion of nose, initial encounter; Y93.9 Activity, unspecified; X58.XXXA Exposure to other specified factors, initial encounter; Y92.129 Unspecified place in nursing home as the place of occurrence of the external cause; S01.111A Laceration without foreign body of right eyelid and periocular area, initial encounter; Z16.12 Extended spectrum beta lactamase (ESBL) resistance; Z79.899 Other long term (current) drug therapy
CPT/HCPCS: 36415; 36600; 70450-TC; 71010-TC; 80048-TC; 80053-TC; 80061-TC; 81000-TC; 82040-TC; 82803-TC; 83605-TC; 83735-TC; 84100-TC; 84484-TC; 85025-TC; 85730-TC; 87040-TC; 87081-TC; 87086-TC; 87186-TC; 92526; 92611-TC; 93307-TC; 94799-TC; 97110-TC; 97530-TC; A4216; A4606; A6402; J0696; J2185; J2920; J3490; J7030; J7060; Z7610